=== PATIENT | female | born 1985 | race American Indian/Alaskan Native ===

== ENCOUNTER 2022-10-11 07:41 | Emergency (ER) | payer OTHER ==
[~2022-10-11] VITALS: Ht 152.4 cm; Wt 68.0 kg
[2022-10-11 08:52] LABS: Source, Urine Clean Catch
[2022-10-11 08:58] LABS: Appearance, Urine Hazy (Clear); Bilirubin, Urine Neg (Neg); Blood, Urine 4+ (Neg); Color, Urine Yellow (P-Yellow); Glucose Qualitative, Urine Neg (Neg); Ketones, Urine Neg (Neg); Leukocyte Esterase, Urine 1+ (Neg); Nitrite, Urine Neg (Neg); Protein, Urine 2+ (Neg); Specific Gravity, Urine 1.015 (1.003-1.022); Urobilinogen, Urine 1+ (Normal)
[2022-10-11 09:00] LABS: BASOPHILS ABSOLUTE AUTO 0.04 K/mm3 (0.00-0.23); BASOPHILS PERCENT AUTO 0 % (0-2); EOSINOPHILS ABSOLUTE AUTO 0.06 K/mm3 (0.00-0.68); EOSINOPHILS PERCENT AUTO 1 % (0-6); Hematocrit 40.5 % (33.0-51.0); Hemoglobin 13.7 g/dL (11.5-16.0); IMMATURE GRAN ABSOLUTE AUTO 0.03 K/mm3 (0.00-0.10); IMMATURE GRAN PERCENT AUTO 0 % (0-1); LYMPHOCYTES ABSOLUTE AUTO 1.35 K/mm3 (0.84-5.20); LYMPHOCYTES PERCENT AUTO 14 % (21-46); MONOCYTES ABSOLUTE AUTO 0.68 K/mm3 (0.16-1.47); MONOCYTES PERCENT AUTO 7 % (4-13); Mean Corpuscular HGB 29.1 pg (26.0-34.0); Mean Corpuscular HGB Conc 33.8 g/dL (31.5-36.5); Mean Corpuscular Volume 86 fL (80-100); Mean Platelet Volume 9.8 fL (9.1-12.4); NEUTROPHILS ABSOLUTE AUTO 7.56 K/mm3 (1.96-9.15); NEUTROPHILS PERCENT AUTO 78 % (41-73); Platelet Count 370 K/mm3 (150-400); RDW Coefficient Variation 12.5 % (11.7-14.2); RDW Standard Deviation 39.6 fL (35.1-46.3); White Blood Cell Count 9.72 K/mm3 (4.00-11.30)
[2022-10-11 09:23] LABS: Albumin, Blood 3.8 g/dL (3.4-5.0); Albumin/Globulin Ratio 0.9 (0.8-1.8); Bilirubin, Total 0.4 mg/dL (0.1-1.0); Bun/Creatinine Ratio 21.4 (12.0-20.0); Calcium, Blood 8.9 mg/dL (8.5-10.1); Creatinine, Blood 0.65 mg/dL (0.40-1.00); Globulin, Blood 4.2 g/dL (2.2-4.0); Potassium, Blood 3.5 mmol/L (3.5-5.5)
[2022-10-11 09:24] LABS: Red Blood Cells, Urine 0-2 /hpf (0-2)
[2022-10-11 09:25] LABS: Bacteria Many /hpf; Mucus Heavy (0-Heavy); Squamous Epithelial Cells Few /hpf (Few)
[2022-10-11 09:27] LABS: Trichomonas Rare /hpf
[2022-10-11] MEDS ORDERED: IBUP600 PO (10:23)
[2022-10-11] MEDS ORDERED: Flagyl500 MG PO (10:23)
[2022-10-11] MEDS ORDERED: ONDA4ODT MM (10:23)
[2022-10-11 11:15] VITALS: BP 128/80
[2022-10-14 03:08] LABS: CHLAMYDIA TRACHOMATIS, NAA Positive (Negative)
== END 2022-10-11 11:41 | disposition home or self-care (01) ==
LOC: ER 07:41
PROVIDERS: Emergency Medicine
DX: A59.00 Urogenital trichomoniasis, unspecified (principal); R19.7 Diarrhea, unspecified; R11.2 Nausea with vomiting, unspecified; Z87.442 Personal history of urinary calculi
CPT/HCPCS: 80053; 81001; 81025; 83690; 85025; 87086; 87491; 87591; 96374; 96375; 99284-25; J1885; J2405

== ENCOUNTER 2022-10-13 15:45 | Emergency (ER) | payer OTHER ==
[~2022-10-13] VITALS: Ht 152.4 cm; Wt 52.2 kg
[~2022-10-13 15:45] MED LIST: Flagyl500 MG PO; IBUP600 PO; ONDA4ODT MM
[2022-10-13 16:32] LABS: BASOPHILS ABSOLUTE AUTO 0.03 K/mm3 (0.00-0.23); BASOPHILS PERCENT AUTO 0 % (0-2); EOSINOPHILS ABSOLUTE AUTO 0.01 K/mm3 (0.00-0.68); EOSINOPHILS PERCENT AUTO 0 % (0-6); Hematocrit 39.4 % (33.0-51.0); Hemoglobin 13.7 g/dL (11.5-16.0); IMMATURE GRAN ABSOLUTE AUTO 0.04 K/mm3 (0.00-0.10); IMMATURE GRAN PERCENT AUTO 0 % (0-1); LYMPHOCYTES ABSOLUTE AUTO 1.34 K/mm3 (0.84-5.20); LYMPHOCYTES PERCENT AUTO 12 % (21-46); MONOCYTES ABSOLUTE AUTO 0.42 K/mm3 (0.16-1.47); MONOCYTES PERCENT AUTO 4 % (4-13); Mean Corpuscular HGB 29.4 pg (26.0-34.0); Mean Corpuscular HGB Conc 34.8 g/dL (31.5-36.5); Mean Corpuscular Volume 85 fL (80-100); Mean Platelet Volume 9.7 fL (9.1-12.4); NEUTROPHILS ABSOLUTE AUTO 9.76 K/mm3 (1.96-9.15); NEUTROPHILS PERCENT AUTO 84 % (41-73); Platelet Count 363 K/mm3 (150-400); RDW Coefficient Variation 12.4 % (11.7-14.2); Red Blood Cell Count 4.66 M/mm3 (3.80-5.20)
[2022-10-13 16:46] LABS: Albumin, Blood 3.9 g/dL (3.4-5.0); Albumin/Globulin Ratio 0.9 (0.8-1.8); Bilirubin, Total 0.3 mg/dL (0.1-1.0); Bun/Creatinine Ratio 18.9 (12.0-20.0); Calcium, Blood 8.9 mg/dL (8.5-10.1); Creatinine, Blood 0.69 mg/dL (0.40-1.00); Globulin, Blood 4.2 g/dL (2.2-4.0); Potassium, Blood 3.7 mmol/L (3.5-5.5); Total Protein, Blood 8.1 g/dL (6.4-8.2)
[2022-10-13] MEDS ORDERED: PROM25 PO (17:28)
[2022-10-13] MEDS ORDERED: AMOX-CLAV 875-1 EAC1 PO (17:28)
[2022-10-13 17:43] VITALS: BP 111/60
== END 2022-10-13 17:44 | disposition home or self-care (01) ==
LOC: ER 15:45
PROVIDERS: Emergency Medicine
DX: K52.9 Noninfective gastroenteritis and colitis, unspecified (principal); Z79.899 Other long term (current) drug therapy
CPT/HCPCS: 74177; 80053; 84703; 85025; 86900; 86901; 96374-59; 99284-25; A9270; J2405; J7030; Q9967

== ENCOUNTER 2024-05-01 09:31 | Emergency (ER) | payer OTHER ==
[~2024-05-01] VITALS: Ht 152.4 cm; Wt 81.7 kg
[~2024-05-01 09:31] MED LIST changes: +AMOX-CLAV 875-1 EAC1 PO; +PROM25 PO
[2024-05-01 10:35] LABS: BASOPHILS ABSOLUTE AUTO 0.04 K/mm3 (0.00-0.23); BASOPHILS PERCENT AUTO 0 % (0-2); EOSINOPHILS ABSOLUTE AUTO 0.04 K/mm3 (0.00-0.68); EOSINOPHILS PERCENT AUTO 0 % (0-6); Hemoglobin 10.9 g/dL (11.5-16.0); IMMATURE GRAN ABSOLUTE AUTO 0.05 K/mm3 (0.00-0.10); IMMATURE GRAN PERCENT AUTO 1 % (0-1); LYMPHOCYTES ABSOLUTE AUTO 1.65 K/mm3 (0.84-5.20); LYMPHOCYTES PERCENT AUTO 17 % (21-46); MONOCYTES ABSOLUTE AUTO 0.45 K/mm3 (0.16-1.47); MONOCYTES PERCENT AUTO 5 % (4-13); Mean Corpuscular HGB 28.5 pg (26.0-34.0); Mean Corpuscular Volume 86 fL (80-100); Mean Platelet Volume 9.5 fL (9.1-12.4); NEUTROPHILS ABSOLUTE AUTO 7.34 K/mm3 (1.96-9.15); NEUTROPHILS PERCENT AUTO 77 % (41-73); Platelet Count 318 K/mm3 (150-400); RDW Coefficient Variation 12.7 % (11.7-14.2); RDW Standard Deviation 39.5 fL (35.1-46.3); Red Blood Cell Count 3.82 M/mm3 (3.80-5.20); White Blood Cell Count 9.57 K/mm3 (4.00-11.30)
[2024-05-01 10:46] LABS: Source, Urine Clean Catch
[2024-05-01 10:52] LABS: Bilirubin, Urine Neg (Neg); Blood, Urine Neg (Neg); Glucose Qualitative, Urine Neg (Neg); Ketones, Urine Neg (Neg); Leukocyte Esterase, Urine Neg (Neg); Nitrite, Urine Neg (Neg); Protein, Urine Neg (Neg); Specific Gravity, Urine 1.005 (1.003-1.022); Urobilinogen, Urine NORM (Normal)
[2024-05-01 10:57] LABS: Appearance, Urine Clear (Clear); Color, Urine Yellow (P-Yellow)
[2024-05-01 11:05] LABS: Albumin, Blood 2.5 g/dL (3.4-5.0); Albumin/Globulin Ratio 0.6 (0.8-1.8); Bilirubin, Total 0.4 mg/dL (0.1-1.0); Bun/Creatinine Ratio 15.2 (12.0-20.0); Calcium, Blood 8.6 mg/dL (8.5-10.1); Creatinine, Blood 0.59 mg/dL (0.40-1.00); Globulin, Blood 4.4 g/dL (2.2-4.0); Total Protein, Blood 6.9 g/dL (6.4-8.2)
[2024-05-01] MEDS ORDERED: Ondansetron HCl 2 MG / ML 2ML Vial IV ONE (11:05)
[2024-05-01] MEDS ORDERED: Morphine Sulfate 4 MG/1 ML Injection IV ONE (11:05)
[2024-05-01 12:56] VITALS: BP 124/75
[2024-05-01] MEDS ORDERED: Percocet 10-321 EACH PO (14:38)
[2024-05-01] MEDS ORDERED: ONDA4ODT MM (14:38)
[2024-05-01] MEDS ORDERED: Roxicodone5 MG PO (14:39)
== END 2024-05-01 15:36 | disposition home or self-care (01) ==
LOC: ER 09:31
PROVIDERS: Physician Assistant
DX: O26.833 Pregnancy related renal disease, third trimester (principal); N13.2 Hydronephrosis with renal and ureteral calculous obstruction; Z3A.32 32 weeks gestation of pregnancy
CPT/HCPCS: 76770; 76815; 80053; 81003; 84702; 85025; 96374; 96375; 99284-25; J2270; J2405

== ENCOUNTER 2024-06-19 08:54 | Inpatient (IN) | payer OTHER ==
[2024-06-19] VITALS (24 sets, daily range): BP systolic 95–141; BP diastolic 54–112
[~2024-06-19] VITALS: Ht 152.4 cm; Wt 85.0 kg
[~2024-06-19 08:54] MED LIST changes: +Percocet 10-321 EACH PO; +Roxicodone5 MG PO
[2024-06-19] MEDS ORDERED: Misoprostol 200 MCG Tab BC PRN (09:15)
[2024-06-19] MEDS ORDERED: Acetaminophen 500 MG Tab PO PRN (09:15)
[2024-06-19] MEDS ORDERED: Lactated Ringer's 1,000 ML IV PRN ×3 (09:15→09:45)
[2024-06-19] MEDS ORDERED: OXYTOCIN/RINGER'S LACTATE 500 ML IV PRN (09:15)
[2024-06-19] MEDS ORDERED: Misoprostol 200 MCG Tab PR PRN (09:15)
[2024-06-19] MEDS ORDERED: Ondansetron HCl 2 MG / ML 2ML Vial IV PRN ×2 (09:15→16:45)
[2024-06-19] MEDS ORDERED: Carboprost Tromethamine 250 MCG/ML 1ML Amp IM PRN (09:15)
[2024-06-19] MEDS ORDERED: Methylergonovine Maleate 0.2MG / ML 1ML Amp IM PRN (09:15)
[2024-06-19] MEDS ORDERED: Oxytocin 10 Unit / ML Vial IM PRN (09:15)
[2024-06-19] MEDS ORDERED: Calcium Carbonate 500 MG Tab Chew PO SCH (09:20)
[2024-06-19] MEDS ORDERED: Tranexamic Acid 100 ML IV SCH (09:25)
[2024-06-19 09:35] LABS: BASOPHILS ABSOLUTE AUTO 0.06 K/mm3 (0.00-0.23); BASOPHILS PERCENT AUTO 1 % (0-2); EOSINOPHILS ABSOLUTE AUTO 0.03 K/mm3 (0.00-0.68); EOSINOPHILS PERCENT AUTO 0 % (0-6); Hematocrit 35.2 % (33.0-51.0); Hemoglobin 11.7 g/dL (11.5-16.0); IMMATURE GRAN ABSOLUTE AUTO 0.05 K/mm3 (0.00-0.10); IMMATURE GRAN PERCENT AUTO 1 % (0-1); LYMPHOCYTES ABSOLUTE AUTO 1.47 K/mm3 (0.84-5.20); LYMPHOCYTES PERCENT AUTO 16 % (21-46); MONOCYTES ABSOLUTE AUTO 0.43 K/mm3 (0.16-1.47); MONOCYTES PERCENT AUTO 5 % (4-13); Mean Corpuscular HGB 26.8 pg (26.0-34.0); Mean Corpuscular HGB Conc 33.2 g/dL (31.5-36.5); Mean Corpuscular Volume 81 fL (80-100); Mean Platelet Volume 10.4 fL (9.1-12.4); NEUTROPHILS ABSOLUTE AUTO 6.95 K/mm3 (1.96-9.15); NEUTROPHILS PERCENT AUTO 77 % (41-73); Platelet Count 385 K/mm3 (150-400); Red Blood Cell Count 4.37 M/mm3 (3.80-5.20); White Blood Cell Count 8.99 K/mm3 (4.00-11.30)
[2024-06-19] MEDS ORDERED: PRENATAL TABLE1 EAC2 (09:36)
[2024-06-19] MEDS ORDERED: FentaNYL 2mcg/ml-Bup 0.1% Epd 250 ML EPI PRN (09:40)
[2024-06-19] MEDS ORDERED: ePHEDrine Sulfate 50 MG/ML 1ML Injection XX PRN (09:40)
[2024-06-19] MEDS ORDERED: FentaNYL Citrate 50 MCG/ML 2 ML Injection IV PRN (09:40)
[2024-06-19] MEDS ORDERED: Lactated Ringer's 1,000 ML IV SCH (13:10)
[2024-06-19] MEDS ORDERED: OXYTOCIN/RINGER'S LACTATE 500 ML IV SCH (13:10)
[2024-06-19] MEDS ORDERED: DiphenhydrAMINE HCl 50 MG/ML 1ML Vial IV PRN (16:45)
[2024-06-19] MEDS ORDERED: ePHEDrine Sulfate 50 MG/ML 1ML Injection IV PRN (16:45)
[2024-06-19] MEDS ORDERED: Metoclopramide HCl 5MG / ML 2ML Vial IV PRN (16:45)
[2024-06-19] MEDS ORDERED: Naloxone HCl 0.4MG / ML 1ML Vial IV PRN (16:45)
[2024-06-19] MEDS ORDERED: Lidocaine 2% 5 ML SDV ONE (23:10)
[2024-06-19 23:51] LABS: PCO2 Cord - Venous 39.4 mmHg (40-50); PO2 Cord - Venous 34.3 mmHg (28-32); pH Umbilical Cord - Venous 7.33 (7.26-7.35)
[2024-06-20] VITALS (11 sets, daily range): BP systolic 111–139; BP diastolic 56–81
[2024-06-20] MEDS ORDERED: Lidocaine 2% 5 ML SDV EPI ONE
[2024-06-20] MEDS ORDERED: Methylergonovine Maleate 0.2MG / ML 1ML Amp IM PRN (00:10)
[2024-06-20] MEDS ORDERED: Misoprostol 200 MCG Tab PR PRN (00:10)
[2024-06-20] MEDS ORDERED: Acetaminophen 325 MG TABLET PO PRN (00:10)
[2024-06-20] MEDS ORDERED: Benzocaine Topical Anesthetic Spray 60GM TOP PRN (00:10)
[2024-06-20] MEDS ORDERED: Lanolin Cream TOP PRN (00:10)
[2024-06-20] MEDS ORDERED: Carboprost Tromethamine 250 MCG/ML 1ML Amp IM PRN (00:10)
[2024-06-20] MEDS ORDERED: FLU VACC TS2024-25(6MOS UP)/PF 45 MCG/0.5 ML SYRINGE IM ONE (00:15)
[2024-06-20] MEDS ORDERED: OXYTOCIN/RINGER'S LACTATE 500 ML IV SCH (00:15)
[2024-06-20] MEDS ORDERED: Lactated Ringer's 1,000 ML IV SCH (00:15)
[2024-06-20] MEDS ORDERED: Ibuprofen 400 MG Tab PO PRN (00:15)
[2024-06-20] MEDS ORDERED: Witch Hazel/Glycerin PADS TOP PRN (00:15)
[2024-06-20] MEDS ORDERED: Docusate Sodium 100 MG Cap PO PRN (00:15)
[2024-06-20] MEDS ORDERED: Ketorolac Tromethamine 30mg Vial IV PRN (00:20)
[2024-06-20] MEDS ORDERED: Prenatal Vit/FE Fumarate/FA 1 Tab PO SCH (09:00)
[2024-06-21 01:08] VITALS: BP 130/67
[2024-06-21 04:25] VITALS: BP 121/74
[2024-06-21 07:34] VITALS: BP 133/77
[2024-06-21 12:02] VITALS: BP 120/68
== END 2024-06-21 13:08 | disposition home or self-care (01) | DRG 807 ==
LOC: OBS 08:54 → BC 09:11
PROVIDERS: ADMIT Obstetrics & Gynecology
PROC: 10E0XZZ Delivery of Products of Conception, External Approach (ICD-10-PCS; principal; 2024-06-19)
PROC: 10H07YZ Insertion of Other Device into Products of Conception, Via Natural or Artificial Opening (ICD-10-PCS; 2024-06-19)
PROC: 4A1H7CZ Monitoring of Products of Conception, Cardiac Rate, Via Natural or Artificial Opening (ICD-10-PCS; 2024-06-19)
PROC: 10H073Z Insertion of Monitoring Electrode into Products of Conception, Via Natural or Artificial Opening (ICD-10-PCS; 2024-06-19)
PROC: 4A1HXCZ Monitoring of Products of Conception, Cardiac Rate, External Approach (ICD-10-PCS; 2024-06-19)
DX: O42.02 Full-term premature rupture of membranes, onset of labor within 24 hours of rupture (principal); Z37.0 Single live birth; Z3A.39 39 weeks gestation of pregnancy; O77.0 Labor and delivery complicated by meconium in amniotic fluid; O99.214 Obesity complicating childbirth; O24.420 Gestational diabetes mellitus in childbirth, diet controlled; O63.0 Prolonged first stage (of labor); O69.81X0 Labor and delivery complicated by cord around neck, without compression, not applicable or unspecified
CPT/HCPCS: 36415; 51702; 59025; 82803; 82947; 85025; 86850; 86900; 86901; 99214; A9270; J1885; J2590; J3010; J7120